=== PATIENT | male | born 1990 | race American Indian/Alaskan Native ===

== ENCOUNTER 2018-09-05 08:13 | Emergency (ER) | payer BC ==
[2018-09-05 09:14] VITALS: BP 127/72
--- NOTE | 2018-09-05 09:14 | Emergency Department Report ---
Suture/Staple Removal - [facility] Chief Complaint: Laceration/Recheck/Suture Stated Complaint: REMOVE STITCHES Time Seen by Provider: 09/05/18 08:41 When Sutures or [place] Placed: 5-7 Days Ago Wound Location: mid forehead ED Review of Systems ROS: Stated complaint: REMOVE STITCHES Other details as noted in HPI Constitutional: denies: chills, fever Eyes: denies: eye pain, eye discharge, vision change Cardiovascular: denies: chest pain, palpitations Endocrine: no symptoms reported Genitourinary: denies: urgency, dysuria Musculoskeletal: denies: back pain, joint swelling, arthralgia Skin: denies: rash, lesions ED Past Medical Hx - Past Medical History Previous Medical History?: No - Surgical History Past Surgical History?: No - Social History Smoking Status: Never Smoker Substance Use Type: None - Medications Home Medications: Home Medications Medication Instructions Recorded Confirmed Last Taken Type Ibuprofen [Motrin 800 MG tab] 800 mg PO Q8HR PRN #20 tablet 08/30/18 Unknown Rx Tramadol HCl [Ultram] 50 mg PO Q6H PRN #7 tablet 08/30/18 Unknown Rx Suture Removal Exam - Exam General: Vital signs noted. No distress. Alert and acting appropriately. Wound: No Pathologic Erythema, No Tenderness, No Drainage, No Pus, No Wound Dehiscence Other Systems: All other systems reviewed and are unremarkable. ED Course Vital Signs 09/05/18 08:17 Temperature 99.1 F Pulse Rate 52 L Respiratory 20 Rate Blood Pressure 127/72 O2 Sat by Pulse 100 Oximetry ED Recheck MDM - Medical Decision Making 28-year-old male presents with laceration removal. 5 sutures removed from the mid forehead without any problems Patient tolerated procedure well and no complications. wound looks healed, no dehiscence, Discussed to use topical Neosporin daily. Follow-up with a primary care as needed. Discussed wound care , instructions given Critical care attestation.: If time is entered above; I have spent that time in minutes in the direct care of this critically ill patient, excluding procedure time. ED Disposition Clinical Impression: Encounter for removal of sutures Disposition: - TO HOME OR SELFCARE Is pt being admited?: No Does the pt Need Aspirin: No Condition: Stable Instructions: Acute Wound Care (ED) Additional Instructions: Make sure to follow up with the primary care physician as discussed. If you have any worsening symptoms or develop new symptoms please return to ED immediately. Referrals: PRIMARY CARE, [Primary Care Provider] - 3-5 Days Forms: Work/School Release Form(ED) Time of Disposition: 09:08
== END 2018-09-05 09:20 | disposition home or self-care (01) ==
LOC: ED 08:13
DX: S01.81XD Laceration without foreign body of other part of head, subsequent encounter (principal); X58.XXXD Exposure to other specified factors, subsequent encounter